=== PATIENT | female | born 1970 | race Caucasian/White ===

== ENCOUNTER 2018-11-23 19:14 | Outpatient (CLI) | payer MEDICAID ==
[~2018-11-23] VITALS: Ht 152.4 cm; Wt 89.6 kg
[~2018-11-23 19:14] MED LIST: CEPH-443 PO; PNV11TAB PO
[2018-11-23 20:58] VITALS: Ht 152.4 cm; Wt 89.6 kg
[2018-11-23 20:59] VITALS: BP 127/69; PULSE 69; RESP 18
== END 2018-11-24 | disposition home or self-care (01) ==
LOC: OBT 19:14 → L-D 19:15 → OBT 11-24
PROVIDERS: ATTEND Specialist
DX: O36.8130 Decreased fetal movements, third trimester, not applicable or unspecified (principal); Z3A.33 33 weeks gestation of pregnancy
CPT/HCPCS: 76818; 81003; 87086; G0463

== ENCOUNTER 2019-01-03 05:35 | Inpatient (IN) | payer MEDICAID ==
[~2019-01-03] VITALS: Ht 144.8 cm; Wt 93.5 kg
[2019-01-03 05:50] VITALS: Ht 144.8 cm; Wt 93.5 kg
[2019-01-03] MEDS ORDERED: OXYTOCIN 30 UNITS/LR 500 ML IV PRN (06:00)
[2019-01-03] MEDS ORDERED: CARBOPROST 250 MCG INJ IM PRN (06:00)
[2019-01-03] MEDS ORDERED: METHYLERGONOVINE 0.2 MG INJ IM PRN (06:00)
[2019-01-03] MEDS ORDERED: MISOPROSTOL 200 MCG TAB PR PRN ×2 (06:00→08:00)
[2019-01-03] MEDS ORDERED: CEFAZOLIN 2 GM/50 ML (PMX) 50 ML IVPB SCH (06:00)
[2019-01-03] MEDS: LACTATED RINGER'S 1,000 ML IV SCH ×2 (06:16→07:45)
[2019-01-03 07:26] VITALS: BP 134/78; PULSE 65; RESP 18
[2019-01-03] MEDS ORDERED: CEFAZOLIN 1 GM INJ ONE (07:40)
[2019-01-03] MEDS ORDERED: LACTATED RINGER'S 1,000 ML IV SCH (07:48)
[2019-01-03] MEDS ORDERED: METOCLOPRAMIDE 10 MG INJ ONE (07:49)
[2019-01-03] MEDS ORDERED: morphine SULFATE/PF (10 MG/10 ML) INJ ONE (07:49)
[2019-01-03] MEDS ORDERED: KETOROLAC 30 MG INJ ONE (07:49)
[2019-01-03] MEDS ORDERED: NA PHOSPHATE/BIPHOS 133 ML ENEMA PR PRN (08:00)
[2019-01-03] MEDS ORDERED: OXYCODONE/ACETAMINOPHEN (5/325) TAB PO PRN ×2 (08:00)
[2019-01-03] MEDS ORDERED: LANOLIN HPA 1 PKT TOP PRN (08:00)
[2019-01-03] MEDS ORDERED: EPHEDrine 25 MG/5 ML SYG ONE (08:03)
[2019-01-03] MEDS: SENNA/DOCUSATE NA (8.6MG/50MG) TAB PO SCH ×2 (09:00→21:00)
[2019-01-03] MEDS ORDERED: OXYTOCIN 30 UNITS/LR 500 ML IV ONE (09:03)
[2019-01-03] MEDS ORDERED: DIPHENHYDRAMINE 50 MG INJ IV PRN ×2 (09:30)
[2019-01-03] MEDS ORDERED: ONDANSETRON 4 MG INJ IV PRN ×2 (09:30)
[2019-01-03] MEDS ORDERED: NALOXONE (0.4 MG/ML) INJ IV PRN (09:30)
[2019-01-03] MEDS ORDERED: morphine 2 MG INJ IV PRN ×6 (09:30)
[2019-01-03] MEDS: OXYTOCIN 30 UNITS/LR 500 ML IV SCH ×2 (09:43→12:17)
[2019-01-03] MEDS: KETOROLAC 30 MG INJ IV PRN ×2 (11:24→17:13)
[2019-01-03 12:00] VITALS: BP 125/61; PULSE 66; RESP 18
[2019-01-03] MEDS: IBUPROFEN 600 MG TAB PO SCH ×2 (12:00→16:52)
[2019-01-03 13:00] VITALS: BP 116/66; PULSE 67; RESP 18
[2019-01-03 15:58] VITALS: BP 119/63; PULSE 91; RESP 16
[2019-01-03 20:20] VITALS: BP 125/59; PULSE 78; RESP 17
[2019-01-04] VITALS: BP 109/54; PULSE 78; RESP 17
[2019-01-04] MEDS: LACTATED RINGER'S 1,000 ML IV SCH ×4 (00:11→21:24)
[2019-01-04 04:00] VITALS: BP 108/57; PULSE 96; RESP 16
[2019-01-04] MEDS: KETOROLAC 30 MG INJ IV PRN (05:08)
[2019-01-04] MEDS: IBUPROFEN 600 MG TAB PO SCH ×5 (06:00→23:56)
[2019-01-04 08:00] VITALS: BP 108/68; PULSE 84; RESP 18
[2019-01-04] MEDS: SENNA/DOCUSATE NA (8.6MG/50MG) TAB PO SCH ×2 (09:32→21:23)
[2019-01-04 15:50] VITALS: BP 122/76; PULSE 91; RESP 18
[2019-01-04 21:00] VITALS: BP 116/56; PULSE 85; RESP 17
[2019-01-04 22:24] VITALS: BP 99/69; PULSE 81; RESP 18
[2019-01-05 04:00] VITALS: BP 96/52; PULSE 80; RESP 17
[2019-01-05] MEDS: LACTATED RINGER'S 1,000 ML IV SCH ×2 (05:49→13:51)
[2019-01-05] MEDS: IBUPROFEN 600 MG TAB PO SCH ×3 (05:50→17:50)
[2019-01-05 08:00] VITALS: BP 136/63; PULSE 80; RESP 18
[2019-01-05] MEDS: SENNA/DOCUSATE NA (8.6MG/50MG) TAB PO SCH ×2 (10:07→21:09)
[2019-01-05 16:36] VITALS: BP 140/68; PULSE 73; RESP 18
[2019-01-05 20:15] VITALS: BP 135/63; PULSE 89; RESP 17
[2019-01-06] MEDS: IBUPROFEN 600 MG TAB PO SCH ×2 (01:31→05:46)
[2019-01-06 04:00] VITALS: BP 106/59; PULSE 64; RESP 17
[2019-01-06 08:00] VITALS: BP 131/60; PULSE 68; RESP 16
[2019-01-06] MEDS ORDERED: MEASLES,MUMPS,RUBELLA VACCINE INJ SC* ONE (09:00)
[2019-01-06] MEDS: SENNA/DOCUSATE NA (8.6MG/50MG) TAB PO SCH (09:00)
[2019-01-06] MEDS ORDERED: DIPHTH/TET/ACEL PERTUSS (ADULT) 0.5 ML VIAL IM* ONE (09:00)
== END 2019-01-06 13:14 | disposition home or self-care (01) | DRG 785 ==
LOC: L-D 05:35 → PP1 11:53
PROVIDERS: ADMIT Specialist; ATTEND Specialist
PROC: 0UT70ZZ Resection of Bilateral Fallopian Tubes, Open Approach (ICD-10-PCS; 2019-01-03)
PROC: 3E033VJ Introduction of Other Hormone into Peripheral Vein, Percutaneous Approach (ICD-10-PCS; 2019-01-03)
PROC: 10D00Z1 Extraction of Products of Conception, Low, Open Approach (ICD-10-PCS; principal; 2019-01-03 07:30)
DX: O65.5 Obstructed labor due to abnormality of maternal pelvic organs (principal); O34.211 Maternal care for low transverse scar from previous cesarean delivery; N73.6 Female pelvic peritoneal adhesions (postinfective); Z3A.39 39 weeks gestation of pregnancy; Z37.0 Single live birth; Z30.2 Encounter for sterilization
CPT/HCPCS: 36415; 36600; 82803; 85025; 85610; 85730; 86592; 86850; 86900; 86901; 87340; 88302; 90715; 99464; J0690; J1885; J2274; J2405; J2590; J2765; J7120